=== PATIENT | female | born 1960 | race Caucasian/White ===

== ENCOUNTER → 2017-01-02 | Outpatient (CLI) | payer OTHER ==
[2016-05-30 10:46] VITALS: BP 121/70
[~2017-01-02] MED LIST: NS 100 ML IV 100 ML IV ONE
--- NOTE | 2017-01-02 12:22 | CT ---
HISTORY: Hematuria, right upper quadrant pain Study: CT abdomen pelvis with contrast Comparison: None Technique: Axial post-contrast images with coronal and sagittal reformats. Dose reduction procedures were used with MA/kv adjusted for body size. Findings: The lung bases are clear. The liver, spleen, adrenal glands, and pancreas are within normal limits. No opaque stones are visible within the gallbladder. The kidneys are unobstructed and without stones or masses. No ureteral calculi are identified. The appendix is normal. No significant intraperitone al or retroperitoneal lymphadenopathy is identified. There are no findings suggestive of diverticuli tis or colitis. No significant small bowel abnormality is identified. There is a large amount of sto ol throughout the colon. Examination of the pelvis demonstrated no evidence for pelvic masses, pelvi c fluid, or pelvic lymphadenopathy to the limitations of a artifact caused by the patient's bilatera l hip prostheses which limits pelvic evaluation. No lytic or blastic skeletal lesions are identified . IMPRESSION: No significant abnormality identified Reported By:
== END ==
LOC: RAD 10:28
PROVIDERS: ATTEND Internal Medicine
DX: R31.9 Hematuria, unspecified (principal); R10.11 Right upper quadrant pain
CPT/HCPCS: 74177; A4222